=== PATIENT | male | born 1935 | race Caucasian/White ===

== ENCOUNTER → 2016-02-20 | Outpatient (CLI) | payer OTHER | LOC: RAD 11:34 | DX: M54.5 Low back pain (principal); M47.816 Spondylosis without myelopathy or radiculopathy, lumbar region; M25.559 Pain in unspecified hip ==

== ENCOUNTER → 2019-08-02 | Outpatient (CLI) | payer OTHER | LOC: SJCVC 13:13 | PROVIDERS: ATTEND Internal Medicine | DX: I49.1 Atrial premature depolarization (principal); I48.0 Paroxysmal atrial fibrillation; I65.23 Occlusion and stenosis of bilateral carotid arteries; E78.5 Hyperlipidemia, unspecified; M19.90 Unspecified osteoarthritis, unspecified site; Z79.899 Other long term (current) drug therapy; Z82.49 Family history of ischemic heart disease and other diseases of the circulatory system; Z79.01 Long term (current) use of anticoagulants; Z87.891 Personal history of nicotine dependence ==

== ENCOUNTER → 2020-02-21 | Outpatient (CLI) | payer OTHER | LOC: SJCVC 13:34 | PROVIDERS: ATTEND Internal Medicine | DX: I48.0 Paroxysmal atrial fibrillation (principal); I65.23 Occlusion and stenosis of bilateral carotid arteries; E78.5 Hyperlipidemia, unspecified; G47.30 Sleep apnea, unspecified; M19.90 Unspecified osteoarthritis, unspecified site; Z79.01 Long term (current) use of anticoagulants; Z79.899 Other long term (current) drug therapy; Z86.73 Personal history of transient ischemic attack (TIA), and cerebral infarction without residual deficits ==

== ENCOUNTER → 2020-09-04 | Outpatient (CLI) | payer OTHER | LOC: SJCVC 13:48 | PROVIDERS: ATTEND Internal Medicine | DX: R00.1 Bradycardia, unspecified (principal); I48.0 Paroxysmal atrial fibrillation; I65.23 Occlusion and stenosis of bilateral carotid arteries; E78.5 Hyperlipidemia, unspecified; Z79.01 Long term (current) use of anticoagulants; Z86.16 Personal history of COVID-19; Z86.73 Personal history of transient ischemic attack (TIA), and cerebral infarction without residual deficits; Z79.899 Other long term (current) drug therapy; Z87.891 Personal history of nicotine dependence; Z72.89 Other problems related to lifestyle ==

== ENCOUNTER → 2021-02-16 | Outpatient (CLI) | payer OTHER ==
[~2021-02-16] MED LIST: FLOMAX0.4 MG PO; FLONASE 0.05%50 MCG NARES; LEVOTHYROXINE25 MC1 PO; LIPITOR 20 MG T20 M1 PO; LOPRESSOR50 PO; PRADAXA150 MG PO; TOPROL XL25 MG PO; VIAGRA100 MG PO
== END ==
LOC: SJCVC 13:19
PROVIDERS: ATTEND Internal Medicine
DX: R94.31 Abnormal electrocardiogram [ECG] [EKG] (principal); I48.0 Paroxysmal atrial fibrillation; E78.5 Hyperlipidemia, unspecified; I65.23 Occlusion and stenosis of bilateral carotid arteries; M19.90 Unspecified osteoarthritis, unspecified site; G47.30 Sleep apnea, unspecified; Z86.16 Personal history of COVID-19; Z86.73 Personal history of transient ischemic attack (TIA), and cerebral infarction without residual deficits; Z87.891 Personal history of nicotine dependence; Z72.89 Other problems related to lifestyle; Z79.01 Long term (current) use of anticoagulants; Z79.899 Other long term (current) drug therapy

== ENCOUNTER 2021-02-19 09:17 | Observation (INO) | payer OTHER ==
[~2021-02-19] VITALS: Ht 170.2 cm; Wt 73.9 kg
[2021-02-19 11:22] LABS: HEMATOCRIT 39.7 % (42.0-52.0); HEMOGLOBIN 13.1 gm/dL (14.0-18.0); MCH 30.8 pg (26.0-34.0); MCHC 33.1 g/dL (28.0-37.0); MCV 93.1 fL (80.0-100.0); RBC 4.26 mil/uL (4.50-6.00); RDW 12.9 % (10.5-14.5); WBC 5.6 thou/uL (4.0-11.0)
[2021-02-19 11:39] LABS: CALCIUM 8.6 mg/dL (8.5-10.1); POTASSIUM 4.4 mmol/L (3.5-5.1)
[2021-02-19 11:47] VITALS: BP 105/73
[2021-02-19] MEDS ORDERED: LIPITOR 20 MG T20 M1 PO (11:53)
[2021-02-19] MEDS ORDERED: FLONASE 0.05%50 MCG NARES (11:54)
[2021-02-19] MEDS ORDERED: LEVOTHYROXINE25 MC1 PO (11:55)
[2021-02-19] MEDS ORDERED: PRADAXA150 MG PO (11:55)
[2021-02-19] MEDS ORDERED: TOPROL XL25 MG PO (11:56)
[2021-02-19] MEDS ORDERED: FLOMAX0.4 MG PO (11:56)
[2021-02-19] MEDS ORDERED: VIAGRA100 MG PO (11:57)
[2021-02-19 12:14] LABS: APTT 28.2 Seconds (24.5-32.8); PROTIME 10.4 Seconds (9.3-11.4)
--- NOTE | 2021-02-19 17:54 | NUR ---
LATE ENTRY 1650: BACK TO CV HOLDING AFTER PPM PLACEMENT LEFT CHEST. HOB ELEVATED 30 DEGREES. SHOULDER IMMOBILIZER TO LEFT ARM. INCISION SITE LEFT CHEST WITH WOUND EDGES WELL APPROXIMATED . VSS. PT ALERT ORIENTED IN NAD. VSS HR REMAINS TACHY 137
[2021-02-19 19:08] VITALS: BP 102/66
--- NOTE | 2021-02-20 07:27 | EKG ---
[address] [place] [address] ELECTROCARDIOGRAM REPORT Name: SAMEER WREN Room #: 210-P [facility] M.R.#: [id number] Admission: 02/19/21 Attend Phys: Kurt Colby Discharge: Date of : 33 Report #: [id number] [facility] Test Date: 2021-02-20 Test Time: 07:10:43 Pat Name: SAMEER WREN Department: Room: 210 P Gender: M Real Estate Sales Associate: ALAINA : 1935 Requested By: Jose Cruz Ventura Order Number: [id number] MD: Jeovany Reece Measurements Intervals [place] Rate: 79 P: NE: QRS: -42 QRSD: 99 T: -20 QT: 370 QTc: 425 Interpretive Statements Atrial flutter Inferior infarct, old Compare to ECG 02/19/2021 at 23:54 Electronically Signed On 02-20-2021 7:27:38 REED POLISHER by Jeovany Reece [email or web address] <ELECTRONICALLY SIGNED> By: Jeovany Reece MD, [facility] 02/20/21 0727 0710 9 Jeovany Reece MD, FACC /EPI
--- NOTE | 2021-02-20 07:27 | EKG ---
[place] [address] [facility] [place] [address] ELECTROCARDIOGRAM REPORT Name: SAMEER WREN Room #: 210-P ADM [facility] M.R.#: [id number] Admission: 02/19/21 Attend Phys: Kurt Colby Discharge: Date of : 33 Report #: [id number] [facility] Test Date: 2021-02-19 Test Time: 23:54:32 Pat Name: SAMEER WREN Department: Room: 210 P Gender: M Chair Mechanic: ANGELI : 1935 Requested By: Neftali Medina Order Number: [id number] MD: Jeovany Reece Measurements Intervals [place] Rate: 127 P: [place]: QRS: -29 QRSD: 97 T: -4 QT: 322 QTc: 469 Interpretive Statements AFIB-Atrial flutter with predominant 2:1 AV block Borderline left axis deviation Abnormal R-wave progression, late transition No previous ECG available for comparison Electronically Signed On 02-20-2021 7:27:08 FRONT END SOFTWARE DEVELOPER by Jeovany Reece [email or web address] <ELECTRONICALLY SIGNED> By: Jeovany Reece MD, [facility] 02/20/21 0727 2353 53 Jeovany Reece MD, FACC /EPI
[2021-02-20] MEDS ORDERED: LOPRESSOR50 PO (08:23)
[2021-02-20 09:20] VITALS: BP 103/70
[2021-02-20 10:56] VITALS: BP 103/70
[2021-02-20 12:58] VITALS: BP 108/56
[2021-03-06] MEDS ORDERED: AMIODARONE HCL400 MG (07:43)
--- NOTE | 2021-03-07 22:58 | CATHLAB ---
[facility] [address] [place] [address] INVASIVE PROCEDURE REPORT Name: SAMEER WREN Room #: 210-P [facility] Nilay Arredondo#: [id number] Admission: 02/19/21 Attend Phys: Kurt Colby Discharge: 02/20/21 Date of : 33 Report #: [id number] THIS REPORT FOR: cc: Connie Yoo MD, Jennifer S. MD Lammoglia, Francisco J. 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 Conscious Sedation demoral IVP 12.5mg aliqouts x 3 Implanted Devices: Medtronic: Mahnaz S DR MRI SYSTEM - [facility]; Model: W3DR01; Serial number: [id number] Medtronic: RA LEAD; Model: 4076 - 45cm; Serial number: [id number] [employer]tronic: RV LEAD; Model: 4076 - 52cm; Serial number: [id number] Procedure The patient underwent informed consent. We discussed the details of the procedure including the risks, which include, but not limited to bleeding, infection, vascular damage, cardiac perforation, and pneumothorax. He understood these risks and was willing to proceed. As such, he was brought to the EP/Cardiac Catheterization laboratory in a fasting and sedated state and prepped and draped in a The patient underwent conscious sedation, with no related complications. The patient was brought to the EP/Cardiac Catheterization laboratory and the left chest and shoulder were prepped and draped in a sterile manner. During this case, Fluoroscopy and no contrast were used for imaging. IV conscious sedation was used throughout procedure with appropriate monitoring and was performed in the presence of a registered nurse [address] [address] INVASIVE PROCEDURE REPORT Name: SAMEER WREN Room #: 210-P [facility] IN .R.#: [id number] Admission: 02/19/21 Attend Phys: Kurt Vicente Discharge: 02/20/21 Date of : 33 Report #: [id number] who was an independent trained observer other than the physician performing the procedure. The left subclavian region was infiltrated with 2% Lidocaine subcutaneous anesthesia. A transverse incision was made in the left upper chest cavity. The subcutaneous pocket was formed via blunt dissection. Percutaneous venous access was achieved and an introducer sheath was inserted into the left Subclavian vein. Sheaths were positions using the modified Seldinger technique Utilizing fluoroscopic guidance, the atrial and ventricular lead wires were advanced over the wires and positioned in the right atria and right ventricle respectively. Capturing and sensing thresholds were verified. Electrode Parameters P Wave: 3.8 R Wave: 8.3 Atrial Threshold: 0.4ms x 0.3mV Ventricular Threshold: 0.5ms x 0.9mV Atrial Resistance: 474 Ventricular Resistance: 651 Dual Chamber The atrial and ventricular leads were then secured using nonabsorbable sutures. The subcutaneous pocket was irrigated with ancef antibiotic solution.The atrial and ventricular leads were attached to the appropriate receptacles on the pulse generator and set screws firmly tightened to insure adequate contact and stability. The lead and pulse generator were placed into the subcutaneous pocket. Sharp and sponge counts were confirmed to be correct. At this time the pocket was closed subcutaneously with a 2-0 non absorbable suture in locking stictch and the skin was closed with a 3.0 Vicryl subcuticular stictch. The operative site was dressed in sterile fashion with sterri strips,4x4, op site and the patient was transferred to the floor in stable condition. Complications The patient tolerated the procedure well and there were no complications associated with the procedure. Findings Specimens Removed: N/A Estimated Blood Loss: 5 cc Conclusion 1. Successsful insertion of a Dual Chamber Pacemaker [facility] [address] [place] [address] INVASIVE PROCEDURE REPORT Name: SAMEER WREN Room #: 210-P [facility] M.R.#: [id number] Admission: 02/19/21 Attend Phys: Kurt Vicente Discharge: 02/20/21 Date of : 33 Report #: [id number] Recommendations 1. Routine post insertion protocol <ELECTRONICALLY SIGNED> By: Kurt Colby MD 03/07/212257 57 57 Kurt Colby MD /INF
== END 2021-02-20 16:49 | disposition home or self-care (01) ==
LOC: CATH 09:17 → 2N 18:14
PROVIDERS: ADMIT Internal Medicine; ATTEND Internal Medicine
DX: I49.5 Sick sinus syndrome (principal); Z20.822 Contact with and (suspected) exposure to COVID-19; I10 Essential (primary) hypertension; E78.5 Hyperlipidemia, unspecified; I48.91 Unspecified atrial fibrillation; G47.33 Obstructive sleep apnea (adult) (pediatric); M19.90 Unspecified osteoarthritis, unspecified site; Z79.899 Other long term (current) drug therapy

== ENCOUNTER → 2021-03-06 | Outpatient (CLI) | payer OTHER ==
[~2021-03-06] VITALS: Ht 170.2 cm; Wt 76.0 kg
[~2021-03-06] MED LIST changes: +AMIODARONE HCL400 MG
[2021-03-06 07:31] VITALS: BP 130/81
--- NOTE | 2021-03-06 09:37 | TEE ---
[facility] [place] [address] TRANSESOPHAGEAL ECHOCARDIOGRAM Name: SAMEER WREN Room #: REG [facility]#: [id number] Admission: 03/06/21 Attend Phys: Jose Cruz Ventura MD, Discharge: Date of : 33 Report #: [id number] THIS REPORT FOR: cc: Connie Yoo MD, Jennifer S. MD Lundgren, Craig H. MD [facility] ~ APPROVED REPORT Study performed: 03/06/2021 08:05:38 EXAM: Transesophageal Echocardiogram with Doppler and cardioversion Patient Location: Out-Patient Room #: 9 Status: routine BSA: 1.87 HR: 64 bpm BP: 129/79 mmHg Rhythm: Atrial Flutter Other Information Study Quality: Good Indications Atrial flutter Echo Enhancing Agent Indication: Rule out Shunt Agent(s) / Amount(s) Used: Agitated Saline 7 cc Procedure After obtaining informed consent, patient underwent transesophageal echo in the [employer]. Type of Sedation : Conscious Sedation Sedation was administered by Nurse. Sedation start time: 814 Case end Time: 821 Sedation was achieved intravenously with: Versed (2mg) Fentanyl (75mcg) Transesophageal probe was inserted and advanced into esophagus without difficulty by Jose Cruz Ventura MD. Echo enhancement indication: R/O Septal defect. Echo enhancement agent administered: Agitated Saline Synchronized Cardioversion acheived with 50 Joules after 1 attempt(s). [facility] [address] [place] [address] TRANSESOPHAGEAL ECHOCARDIOGRAM Name: SAMEER WREN Room #: REG [facility].#: [id number] Admission: 03/06/21 Attend Phys: Jose Cruz Ventura, Discharge: Date of : 33 Report #: [id number] Rhythm following Synchronized Cardioversion: Permanent Paced Rhythm Throughout the procedure, the blood pressure, pulse oximetry, cardiac rhythm, and rate were monitored. The patient tolerated the procedure without adverse effects. Recovery from conscious sedation was uneventful and vital signs were stable. Left Ventricle The left ventricle is normal size. There is normal LV segmental wall motion. There is normal left ventricular wall thickness. The left ventricular systolic function is normal. The left ventricular ejection fraction is within the normal range. LVEF is 60-65%. Right Ventricle The right ventricle is normal size. The right ventricular systolic function is normal. Atria Left atrium is dilated. No thrombus is visualized in the left atrium or appendage. No shunting by contrast bubble injection Right atrium is dilated. Aortic Valve The aortic valve is trileaflet, very minimally sclerotic. Trace aortic regurgitation. There is no aortic valvular stenosis. Mitral Valve The mitral valve is normal in structure. Trace mitral regurgitation. No evidence of mitral valve stenosis. Tricuspid Valve The tricuspid valve is normal in structure. Mild tricuspid regurgitation. Pulmonic Valve The pulmonary valve is normal in structure. There is no pulmonic valvular regurgitation. Great Vessels The aortic root is normal in size. The ascending aorta is normal in size. IVC is normal in size and collapses >50% with inspiration. Pericardium No pericardial effusion. [facility] [address] [place] [address] TRANSESOPHAGEAL ECHOCARDIOGRAM Name: SAMEER WREN [facility] [id number] Admission: 03/06/21 Attend Phys: Jose Cruz Ventura, Discharge: Date of : 33 Report #: [id number] <Conclusion> The left ventricular systolic function is normal. There is normal LV segmental wall motion. LVEF is 60-65%. Both atria are mildly dilated. No thrombus is visualized in the left atrium or appendage. No shunting by contrast bubble injection The aortic valve is trileaflet, very minimally sclerotic. Trace aortic regurgitation, no stenosis. The mitral valve is normal in structure. Trace mitral regurgitation. No pericardial effusion. Successful cardioversion of atrial fibrillation to sinus rhythm following a single, synchronous biphasic 50 J shock <ELECTRONICALLY SIGNED> By: Jose Cruz Ventura MD, [facility] 03/06/21935 5 5 Joes Cruz Ventura MD, FACC /INF
--- NOTE | 2021-03-06 10:03 | EKG ---
[address] [facility] [place] [address] ELECTROCARDIOGRAM REPORT Name: SAMEER WREN [facility] [id number] Admission: 03/06/21 Attend Phys: Jose Cruz Ventura MD, Discharge: Date of : 33 Report #: [id number] [facility] Test Date: 2021-03-06 Test Time: 08:59:29 Pat Name: SAMEER WREN Department: Room: Gender: M Unitizer: [facility] : 1935 Requested By: Jose Cruz Ventura Order Number: [id number] MD: Jeovany Reece Measurements Intervals [place] Rate: 63 P: [place]: 248 QRS: -28 QRSD: 96 T: -10 QT: 415 QTc: 425 Interpretive Statements Atrial-paced rhythm Borderline left axis deviation Low voltage, precordial leads Borderline T abnormalities, diffuse leads Compared to ECG 02/20/2021 07:10:43 Low QRS voltage now present T-wave abnormality now present Atrial flutter no longer present Myocardial infarct finding no longer present Electronically Signed On 03-06-2021 9:24:24 FIRE OFFICER by Jeovany Reece [email or web address] <ELECTRONICALLY SIGNED> By: Jeovany Reece MD, FAC 03/06/21 0924 0859 Jeovany Reece MD, [facility] /EPI
== END | disposition home or self-care (01) ==
LOC: CATH 06:33
PROVIDERS: ATTEND Internal Medicine
DX: I48.91 Unspecified atrial fibrillation (principal); I48.92 Unspecified atrial flutter; I08.3 Combined rheumatic disorders of mitral, aortic and tricuspid valves; E78.5 Hyperlipidemia, unspecified; Z85.46 Personal history of malignant neoplasm of prostate; Z98.890 Other specified postprocedural states; Z79.899 Other long term (current) drug therapy; Z79.01 Long term (current) use of anticoagulants

== ENCOUNTER → 2021-04-09 | Outpatient (CLI) | payer OTHER | LOC: SJCVC 11:57 | PROVIDERS: ATTEND Internal Medicine | DX: R94.31 Abnormal electrocardiogram [ECG] [EKG] (principal); I48.0 Paroxysmal atrial fibrillation; E78.5 Hyperlipidemia, unspecified; I65.23 Occlusion and stenosis of bilateral carotid arteries; Z79.01 Long term (current) use of anticoagulants; G47.30 Sleep apnea, unspecified; M19.90 Unspecified osteoarthritis, unspecified site; Z95.0 Presence of cardiac pacemaker; Z79.899 Other long term (current) drug therapy; Z87.891 Personal history of nicotine dependence ==